=== PATIENT | female | born 1970 | race Caucasian/White ===

== ENCOUNTER 2024-04-02 18:38 | Emergency (ER) | payer OTHER, SELFPAY ==
[2024-04-02 18:45] VITALS: BP 147/88
[2024-04-02 19:17] VITALS: BMI 45.8
--- NOTE | 2024-04-02 19:17 | ED.GENMED ---
History of Present Illness
General
Chief Complaint: Chest Pain
Source: patient
Exam Limitations: none
Time Seen by Provider: 04/02/24 19:03
Nursing documentation reviewed up to this point in time: agreed with
History of Present Illness
History of Present Illness:
53 yr old female presents to the ER sent by urgent care.. Patient reports she has asthma and this morning was wheezing and had to use her nebulizer several times and at 5:30 PM she still felt tight and went to urgent care. Urgent care did an EKG
and told her it was abnormal and recommended to come to the ER. She has no cardiac history. She has no chest pain. She does feel little tight in regards to her breathing. She denies any recent illness fever chills. no other complaints.
Review of Systems
Review of Systems
Allergies reviewed?: Yes
All Other Systems: ROS reviewed and negative except as documented in HPI and ROS
Constitutional: Reports no symptoms; Denies fever, fatigue or chills
Respiratory: Reports trouble breathing and other ('wheezing today ' )
Cardiac: Reports no symptoms; Denies chest pain, diaphoresis, palpitations or syncope
ABD/GI: Reports no symptoms
: Reports no symptoms
Musculoskeletal: Reports no symptoms
Skin: Reports no symptoms
Neurological: Reports no symptoms
Psychiatric: Reports no symptoms
Phy Exam
General Physical Exam
General Presentation: no apparent distress
General age: appears stated age
General Skin: warm and dry
General Habitus: normal
General Mental: alert
General Hydration: appears well hydrated
Cardiovascular Exam
Cardiovascular Exam: regular rate/rhythm, no murmur and normal peripheral pulses
Pulmonary Exam
Pulmonary Exam: lungs clear, no respiratory distress and other (slight decreased breath sounds )
Neurological Exam
Neurological Exam: alert and oriented x3
Scores
Heart Score for Chest Pain Patients
STEMI patient?: Not applicable
Course
Orders/Labs/Results
Orders:
Orders
04/02/24 18:47
Electrocardiogram (*1) Urgent
Reason for Study: Chest Pain
04/02/24 18:48
EKG- Treatment ONCE
04/02/24 19:17
CMP [Comprehensive Metabolic Panel] Urgent
Complete Blood Count/With Diff Urgent
Troponin I Urgent
04/02/24 19:26
Dexamethasone Sod Phosphate [Decadron] 10 mg IV NOW STA
Ipratropium/Albuterol Sulfate [Duoneb] 3 ml INH R NOW STA
Abnormal Lab Results
04/02/24
19:17
RBC 6.10 H 10^6/uL
(4.20-5.40)
Hgb 11.4 L g/dL
(12.0-16.0)
Hct 36.0 L %
(37.0-47.0)
MCV 59.0 L fL
(81.0-99.0)
MCH 18.7 L pg
(27.0-31.0)
MCHC 31.7 L g/dL
(33.0-37.0)
RDW 17.7 H %
(11.5-14.5)
Glucose 129 H mg/dl
(70-99)
04/02/24 19:17
04/02/24 19:17
Vital Signs
Initial and Last Documented VS:
Initial Vital Signs
Temp Pulse Resp BP Pulse Ox
98.9 F 94 18 147/88 94
04/02/24 18:45 04/02/24 18:45 04/02/24 18:45 04/02/24 18:45 04/02/24 18:45
Last Documented Vital Signs
Temp Pulse Resp BP Pulse Ox
98.9 F 94 18 128/89 95
04/02/24 18:45 04/02/24 20:41 04/02/24 20:41 04/02/24 20:41 04/02/24 20:41
Color Adviser consulted with Physician
Color Adviser consulted with physician?: Yes
Name of Physician Consulted: Gay
MDM/Problems Addressed
Differential Diagnosis Includes:
not limited to acute asthma exacerbation
MDM/Problems Addressed:
Patient is a 53-year-old female with history of asthma who went to urgent care initially today because of persistent asthma. She had an EKG at urgent care which the machine read as a flutter and she was sent here to the ER. We physically reviewed
this EKG and it was not a flutter it was normal sinus rhythm the machine simply read it as a flutter she has no cardiac history she presented here awake alert no acute distress feels that her breathing is slightly tight however she is not hypoxic no
acute distress. She was given nebs here along with steroids and monitored here feeling much better. I did review the chest x-ray from urgent care it was uploaded into the system with no findings of pneumonia she is afebrile her white count is
normal hemoglobin mildly low 11.4 I did speak with patient about this, normal electrolytes no chest pain however troponin was done prior to my exam and negative.
Will DC home with asthma exacerbation instructions
*Radiology
Radiology exam reviewed: other (Reviewed chest x-ray from urgent care)
*Pulse Oximetry
Patient hypoxic: no
*EKG
Interpreted by ED Provider?: Yes
Heart Rate: 90
Rate: normal
Rhythm: sinus
Ischemia: no ischemia
*Critical Care Note
Total Time (30-74mins, 75-104mins- exclusive of procedures): Not Applicable
ED Attending Note
-
Portions of this chart may have been created with voice recognition software.� Occasional wrong word or��sound alike� substitutions may have occurred due to the inherent limitations of voice recognition software.
Discharge Plan
Departure
Patient Disposition: Home (Routine Discharge)
Date of Disposition: 04/02/24
Time of Disposition: 20:37
Patient with high blood pressure during this ER visit?: Yes
Condition: Fair
Covid-19: Not Applicable
Discharge Problem:
Asthma exacerbation
Instructions: Asthma, Adult ED
Prescriptions:
New
prednisone 50 mg tablet
50 mg PO DAILY Qty: 5 0RF
Activity Restrictions/Additional Instructions:
As discussed continue to use your inhalers and nebulizers. A prescription for steroids was sent to your pharmacy to use daily for the next 5 days starting tomorrow. Return if any worsening of symptoms including difficulty breathing fever chills
chest pain or any further concerns
Interventions
Interventions:
*Risk Screen - Suicide Last Done: 04/02/24 19:27
*General Assessment Last Done: 04/02/24 19:27
*Neglect/Abuse Screening Last Done: 04/02/24 19:27
ED- Fall Risk Assessment Last Done: 04/02/24 19:27
*Nursing Disposition Last Done: 04/02/24 20:41
ED- Cardiac Assessment Last Done: 04/02/24 19:27
Discharge Date and Time
Discharge Date/Time: 04/02/24 20:44
Print Language: PASHTO
[2024-04-02 19:31] LABS: % Basophils 0.5 % (0-2); % Eosinophils 2.5 % (0-6); % Immature Granulocytes 0.2 % (0-0.5); % Lymphocytes 33.5 % (20.5-51.1); % Monocytes 5.2 % (1.7-9.3); % Neutrophils 58.1 % (42.2-75.2); Absolute Basophils 0.1 10^3/uL (0-0.2); Absolute Eosinophils 0.2 10^3/uL (0-0.7); Absolute Lymphocytes 3.3 10^3/uL (1.2-3.4); Absolute Monocytes 0.5 10^3/uL (0.1-0.6); Absolute Neutrophils 5.7 10^3/uL (1.4-6.5); Hemoglobin 11.4 g/dL (12.0-16.0); Mean Corp Hgb Conc. 31.7 g/dL (33.0-37.0); Mean Corpuscular Hgb 18.7 pg (27.0-31.0); Mean Platelet Volume 9.7 fL (7.4-10.4); Nucleated Red Blood Cells % 0 %; Platelet Count 294 10^3/uL (130-400); Red Cell Dist. Width 17.7 % (11.5-14.5); White Blood Cell Count 9.8 10^3/uL (4.8-10.8)
[2024-04-02] MEDS: DECADRON 10 MG IV (19:43)
[2024-04-02] MEDS: DUONEB 3 ML INH (19:43)
[2024-04-02 19:45] LABS: ALT (SGPT) 19 U/L (0-35); AST (SGOT) 24 U/L (14-36); Albumin 4.3 g/dl (3.5-5.0); Alkaline Phosphatase 88 U/L (38-126); Blood Urea Nitrogen 17 mg/dl (7-17); Calcium 9.4 mg/dl (8.4-10.2); Carbon Dioxide 28 mmol/L (22-30); Chloride 104 mmol/L (98-107); Estimated Creatinine Clearance > 125 ml/min; Glucose 129 mg/dl (70-99); Potassium 3.5 mmol/L (3.5-5.1); Sodium 140 mmol/L (135-145); Total Bilirubin 0.6 mg/dl (0.2-1.3); Total Protein 7.1 g/dl (6.3-8.2); eGFR > 60.00
[2024-04-02 19:55] LABS: Troponin I < 0.012 ng/ml
[2024-04-02 20:41] VITALS: BP 128/89
== END 2024-04-02 20:44 | disposition home or self-care (01) ==
LOC: EMR 18:38
PROVIDERS: Physician Assistant Medical; EMERGENCY PHYSICIAN Emergency Medicine; FAMILY PHYSICIAN Nurse Practitioner Adult Health
DX: J45.901 Unspecified asthma with (acute) exacerbation (principal)
CPT/HCPCS: 99283; 94640; 96374; 80053; 84484; 85025; 93005